=== PATIENT | male | born 2000 | race Native Hawaiian/Other Pacific Islander ===

== ENCOUNTER → 2020-02-05 | Outpatient (CLI) | payer BC | LOC: COL.RAD 13:25 | DX: R10.9 Unspecified abdominal pain (principal) ==

== ENCOUNTER 2024-02-04 19:17 | Emergency (ER) | payer OTHER ==
[~2024-02-04] VITALS: Ht 182.9 cm; Wt 86.4 kg
[2024-02-04 19:36] VITALS: TEMP 98.4
[2024-02-04] MEDS ORDERED: Ketorolac 15 MG/ML VIAL IV ONE (21:15)
[2024-02-04] MEDS ORDERED: NS 1,000 ML IV ONE (21:15)
[2024-02-04 21:31] LABS: BASO # 0.1 K/mm3 (0.0-0.2); EOS # 0.1 K/mm3 (0.0-0.7); EOS % 1.9 % (0.0-4.0); GRAN # 2.7 K/mm3 (1.4-6.5); GRAN % 39.8 % (42.2-75.2); HEMATOCRIT 40.8 % (42.0-52.0); HEMOGLOBIN 14.3 g/dl (13.5-18.0); LYMPH # 3.1 K/mm3 (1.2-3.4); LYMPH % 45.4 % (20.0-51.0); MEAN CELL VOLUME 85 fl (80.0-100.0); MEAN CORPUSCULAR HEMOGLOBIN 30 pg (27-31); MEAN CORPUSCULAR HGB CONC 35 g/dl (33.0-37.0); MONO # 0.8 K/mm3 (0.1-0.6); MONO % 11.6 % (1.7-9.3); PLATELET COUNT 227 K/mm3 (130-400); RED BLOOD COUNT 4.79 M/mm3 (4.20-5.60); REDCELL DISTRIBUTION WIDTH-CV 11.7 % (11.5-14.5)
[2024-02-04 21:48] LABS: ALBUMIN 3.9 g/dL (3.5-5.0); BILIRUBIN,TOTAL 0.6 mg/dL (0.2-1.2); CALCIUM 9.1 mg/dL (8.4-10.2); CREATININE, serum 1.28 mg/dL (0.72-1.25); POTASSIUM 3.7 mEq/L (3.5-4.5); TOTAL PROTEIN 6.8 g/dl (6.2-8.1)
[2024-02-04] MEDS ORDERED: Iohexol 300 - 100 ML VIAL IV ONE (22:01)
[2024-02-04] MEDS ORDERED: NS 50 ML IV SCH (22:05)
[2024-02-04 22:55] VITALS: BP 119/80; PULSE 58
== END 2024-02-04 22:55 | disposition home or self-care (01) ==
LOC: COL.ER 19:17
PROVIDERS: Emergency Medicine
DX: R10.12 Left upper quadrant pain (principal)
CPT/HCPCS: J1885; J7030; Q9967